=== PATIENT | male | born 1965 | race Caucasian/White ===

== ENCOUNTER 2022-01-15 10:53 | Inpatient (IN) | payer BC, SELFPAY ==
[~2022-01-15] VITALS: Ht 185.4 cm; Wt 104.3 kg
[2022-01-15 10:53] VITALS: BP_SYST 180
[2022-01-15] MEDS ORDERED: LABETALOL 100 MG/ 20ML VIAL IVP ONE (11:15)
[2022-01-15 11:28] LABS: HEMATOCRIT 47.2 % (36-54); HEMOGLOBIN 15.7 g/dL (14.0-18.0); RED BLOOD CELL COUNT(AUTO) 5.13 MIL/uL (4.2-6.2); WHITE BLOOD COUNT (AUTO) 7.6 K/uL (4.8-10.8)
[2022-01-15 11:29] LABS: BASOPHILS # (AUTO) 0.2 K/uL (0.0-0.2); BASOPHILS % (AUTO) 2.5 % (0.0-2.0); EOSINOPHILS # (AUTO) 0.1 K/uL (0.0-0.4); EOSINOPHILS % (AUTO) 1.6 % (0.0-4.0); LYMPHOCYTES # (AUTO) 1.7 K/uL (1.0-5.5); LYMPHOCYTES % (AUTO) 21.9 % (20.5-51.5); MEAN CORPUSCULAR HEMOGLOBIN 31 pg (27-31); MEAN CORPUSCULAR HGB CONC 33 % (32-36); MEAN CORPUSCULAR VOLUME 92 fL (79.0-98.0); MONOCYTES # (AUTO) 0.6 K/uL (0.0-1.0); MONOCYTES % (AUTO) 7.6 % (1.7-9.3); NEUTROPHILS # (AUTO) 5.1 K/uL (1.8-7.7); NEUTROPHILS % (AUTO) 66.4 % (40.0-70.0); PLATELET COUNT (AUTO) 255 K/uL (130-430); RED CELL DISTRIBUTION WIDTH 14.2 % (9.0-15.0)
[2022-01-15 13:02] LABS: POTASSIUM 3.8 mmol/L (3.5-5.1)
[2022-01-15 13:03] LABS: CALCIUM 8.4 mg/dL (8.4-11.0)
[2022-01-15 13:04] LABS: ALBUMIN 4.2 g/dL (3.4-4.8); CREATININE 0.78 mg/dL (0.55-1.30); TOTAL BILIRUBIN 0.3 mg/dL (0.0-1.0)
[2022-01-15] MEDS ORDERED: ASPIRIN 81 MG TAB.CHEW PO ONE (13:30)
[2022-01-15] MEDS ORDERED: VALS80TA2 PO (14:30)
[2022-01-15] MEDS ORDERED: METO25TA6 PO (14:30)
[2022-01-15] MEDS ORDERED: LIP20 PO (14:30)
[2022-01-15] MEDS ORDERED: ALLO300T2 PO (14:30)
[2022-01-15] MEDS ORDERED: ASPI-1393 PO (14:30)
[2022-01-15] MEDS ORDERED: FISH1CAP18 PO (14:30)
[2022-01-15 14:39] VITALS: BP_SYST 128
[2022-01-15 14:55] VITALS: BP_SYST 128
[2022-01-15] MEDS ORDERED: ACETAMINOPHEN 325 MG TABLET PO PRN ×2 (18:00→21:15)
[2022-01-15] MEDS ORDERED: ACETAMINOPHEN 325 MG TABLET ONE (18:04)
[2022-01-15 18:28] VITALS: BP_SYST 138
[2022-01-15 19:00] VITALS: BP_SYST 131
[2022-01-15 20:00] VITALS: BP_SYST 131
[2022-01-15] MEDS ORDERED: ONDANSETRON HCL 4 MG/2 ML VIAL IVP PRN (21:15)
[2022-01-15] MEDS ORDERED: NALOXONE HCL 0.4 MG/ML AMP (NARCAN) IVP PRN ×2 (21:15)
[2022-01-15] MEDS ORDERED: HYDROcodone/ACETAMIN 5-325 MG TAB (NORCO/ VICODIN) PO PRN (21:15)
[2022-01-15] MEDS ORDERED: LORazepam 2 MG/ML VIAL IVP PRN (21:15)
[2022-01-15] MEDS ORDERED: HYDROcodone/ACETAMIN 10-325 MG TAB PO PRN (21:15)
[2022-01-15] MEDS: NORMAL SALINE 5 ML DISP.SYRIN IVF SCH (21:39)
[2022-01-15] MEDS ORDERED: NORMAL SALINE 5 ML DISP.SYRIN IVF SCH (22:00)
[2022-01-16] MEDS: NORMAL SALINE 5 ML DISP.SYRIN IVF SCH (05:37)
[2022-01-16 07:36] LABS: CALCIUM 8.1 mg/dL (8.4-11.0); CREATININE 0.89 mg/dL (0.55-1.30); PHOSPHORUS 4.7 mg/dL (2.7-4.5); POTASSIUM 4.1 mmol/L (3.5-5.1); THYROID STIMULATING HORMONE 1.53 uIu/mL (0.36-3.74)
[2022-01-16 08:01] VITALS: BP_SYST 151
[2022-01-16 08:04] VITALS: BP_SYST 153
[2022-01-16 08:31] LABS: BASOPHILS % (AUTO) 0.5 % (0.0-2.0); EOSINOPHILS # (AUTO) 0.1 K/uL (0.0-0.4); EOSINOPHILS % (AUTO) 1.9 % (0.0-4.0); HEMATOCRIT 44.2 % (36-54); HEMOGLOBIN 14.6 g/dL (14.0-18.0); LYMPHOCYTES # (AUTO) 2.5 K/uL (1.0-5.5); LYMPHOCYTES % (AUTO) 36.1 % (20.5-51.5); MEAN CORPUSCULAR HEMOGLOBIN 30 pg (27-31); MEAN CORPUSCULAR HGB CONC 33 % (32-36); MEAN CORPUSCULAR VOLUME 92 fL (79.0-98.0); MONOCYTES # (AUTO) 0.6 K/uL (0.0-1.0); MONOCYTES % (AUTO) 8.4 % (1.7-9.3); NEUTROPHILS # (AUTO) 3.7 K/uL (1.8-7.7); NEUTROPHILS % (AUTO) 53.1 % (40.0-70.0); PLATELET COUNT (AUTO) 241 K/uL (130-430); RED BLOOD CELL COUNT(AUTO) 4.83 MIL/uL (4.2-6.2); RED CELL DISTRIBUTION WIDTH 14.3 % (9.0-15.0)
[2022-01-16] MEDS ORDERED: LOSARTAN POTASSIUM 25 MG TABLET PO SCH (09:00)
[2022-01-16] MEDS ORDERED: METOPROLOL TARTRATE 25 MG TABLET PO SCH (09:00)
[2022-01-16] MEDS ORDERED: ASPIRIN 81 MG TABLET(ECOTRIN) PO SCH (09:00)
[2022-01-16] MEDS ORDERED: OMEGA-3/DHA/EPA/FISH OIL 1 GM CAPSULE PO SCH (09:00)
[2022-01-16] MEDS ORDERED: ALLOPURINOL 300 MG TABLET (ZYLOPRIM) PO SCH (09:00)
[2022-01-16 11:36] VITALS: BP_SYST 133
[2022-01-16] MEDS ORDERED: VALS80TA2 PO (11:55)
[2022-01-16 12:16] VITALS: BP_SYST 133
[2022-01-16] MEDS ORDERED: ATORVASTATIN 20 MG TABLET PO SCH (21:00)
== END 2022-01-16 12:44 | disposition home or self-care (01) | DRG 305 ==
LOC: SED 10:53 → STU 13:45
PROVIDERS: ADMIT Preventive Medicine Preventive Medicine/Occupational Environmental Medicine; ATTEND Preventive Medicine Preventive Medicine/Occupational Environmental Medicine
DX: I16.0 Hypertensive urgency (principal); I24.8 Other forms of acute ischemic heart disease; E66.9 Obesity, unspecified; E78.5 Hyperlipidemia, unspecified; G47.33 Obstructive sleep apnea (adult) (pediatric); R73.9 Hyperglycemia, unspecified; Z20.822 Contact with and (suspected) exposure to COVID-19; Z60.2 Problems related to living alone; I11.9 Hypertensive heart disease without heart failure; I70.0 Atherosclerosis of aorta; Z95.0 Presence of cardiac pacemaker; Z95.5 Presence of coronary angioplasty implant and graft; Z79.82 Long term (current) use of aspirin; Z79.899 Other long term (current) drug therapy; Z68.30 Body mass index [BMI] 30.0-30.9, adult; I25.2 Old myocardial infarction
CPT/HCPCS: 36415; 70450-TC; 71045; 76376; 80048; 80053; 80061; 82550; 83735; 83880; 84100; 84443; 84484; 85025; 93005; 93306; 96374; 99291; G0378; J2060; J3490